=== PATIENT | male | born 1985 | race Caucasian/White ===

== ENCOUNTER 2021-09-17 14:26 | Emergency (ER) | payer OTHER, SELFPAY ==
--- NOTE | ~2021-09-17 | CT_ITS ---
EXAMINATION: CT ABDOMEN AND PELVIS WITHOUT CONTRAST CLINICAL INFORMATION: Left back pain and hematuria. Rule out kidney stones. COMPARISON: None TECHNIQUE: Multidetector volumetric imaging was performed from the superior aspect of the liver through the pubic symphysis. Sagittal and coronal reformatted images were obtained on the technologist's workstation. This CT examination was performed using dose optimization techniques as appropriate, variously including the following: *Automated exposure control *Adjustment of mA and/or kV according to patient size (this includes techniques or standardized protocols for targeted exams where dose is matched to indication/reason for exam; i.e. extremities or head) *Use of iterative reconstruction technique DLP: 1130 mGy-cm FINDINGS: LUNG BASES: There is motion artifact at the lung bases. There is question of airways disease with bronchial wall thickening and peribronchial nodules in the inferior segment of the lingula. LIVER, GALLBLADDER, AND BILIARY TREE: The liver is enlarged and low in attenuation suggestive of fatty infiltration. The liver and gallbladder are otherwise unremarkable. PANCREAS: Unremarkable. SPLEEN: The spleen is prominent measuring 14.5 cm in AP dimension. ADRENAL GLANDS: Unremarkable. KIDNEYS AND URETERS: The kidneys are normal in size, shape, and attenuation. No hydronephrosis, hydroureter, or calculi seen. There is a 1 cm low-attenuation lesion exophytic to the lower pole of the left kidney probably representing a cyst. No imaging follow-up is indicated. BLADDER: Unremarkable. GASTROINTESTINAL TRACT: There is diverticulosis of the colon. The small and large bowel are otherwise unremarkable. The appendix is unremarkable. ABDOMINAL WALL: No significant hernia is appreciated. LYMPH NODES: Normal. VASCULAR: Unremarkable. PELVIC VISCERA: Unremarkable. OSSEOUS STRUCTURES: There are degenerative changes of the spine. CT/CT abdomen pelvis wo IV con IMPRESSION: No renal stone or hydronephrosis seen. Small left renal cyst. Diverticulosis. Fatty infiltration of the liver. Prominent spleen. Question mild bronchial wall thickening or airways disease in the inferior segment of lingula. Fleischner guidelines were followed.
[2021-09-17 15:43] VITALS: BP 139/96; PULSE 68; RESP 20; TEMP 36.7; O2SAT 100; BMI 43.8
--- NOTE | 2021-09-17 15:46 | ED_ITS ---
HPI - General Adult General Chief complaint: Abdominal Pain Stated complaint: lower back pain/ blood in urine Time Seen by Provider: 09/17/21 15:44 Related Data Previous Rx's Medication Instructions Recorded cyclobenzaprine 10 mg tablet 10 mg PO Q8H #20 tab 09/17/21 tramadol 50 mg tablet 50 mg PO Q6H PRN #20 tab 09/17/21 Allergies Allergy/AdvReac Type Severity Reaction Status Date / Time No Known Allergies Allergy Verified 09/17/21 15:45 [facility] Past Medical History Medical History No known health problems Social History Social History Advance Directives: No Physical Exam ED Vital Signs: Vital Signs - 24 hr 09/17/21 15:43 Temperature 98.1 F Pulse Rate 68 Respiratory Rate 20 Blood Pressure 139/96 H Pulse Oximetry 100 BMI result Body Mass Index 43.8 Course Course Course Narrative: Rapid medical screening. Patient presents to the ED for left flank pain with hematuria since yesterday. Patient is well appearing. labs, UA and Abdomen/CT scan ordered for kidney stones. Medical Decision Making Lab Data Result diagrams: 09/17/21 16:31 09/17/21 16:31 Labs: Lab Results 09/17/21 09/17/21 09/17/21 Range/Units 16:31 16:31 16:31 WBC 7.6 (4.8-10.8) X10*3/uL RBC 4.40 L (4.60-5.80) X10*6/uL Hgb 14.6 (14.0-18.0) g/dl Hct 41.1 L (42.0-52.0) % MCV 93.4 (80.0-98.0) fL MCH 33.2 H (27.0-33.0) pg MCHC 35.5 (31.0-36.0) g/dl RDW 12.0 (11.0-16.0) % Plt Count 203 (160-400) X10*3/uL MPV 9.2 L (9.4-12.4) fL Immature Gran % (Auto) 0.5 H (0.0-0.4) % Neut % (Auto) 67.4 (45-73) % Lymph % (Auto) 20.9 (20-40) % [place] % (Auto) 7.0 (2-11) % Eos % (Auto) 3.8 (0-4) % Baso % (Auto) 0.4 (0-2) % Lymph # (Auto) 1.6 (1.2-4.9) X10*3/uL [place] # (Auto) 0.5 (0.1-1.2) X10*3/uL Eos # (Auto) 0.3 (0.0-0.4) X10*3/uL Baso # (Auto) 0.0 (0.0-0.2) X10*3/uL Abs Immat Gran (auto) 0.04 H (0.00-0.03) X10*3/uL Absolute Neuts (auto) 5.1 (2.0-8.3) x10*3/uL Absolute Nucleated RBC 0.000 (0.0-0.012) X10*3/uL Nucleated RBC % (auto) 0.0 (0.0-0.2) /100WBC Sodium 139 (135-145) mmol/L Potassium 4.0 (3.3-5.1) mmol/L Chloride 103 (96-108) mmol/L Carbon Dioxide 29 (22-29) mmol/L Anion Gap 11 L (12-20) BUN 9 (9-16) mg/dL Creatinine 0.80 (0.5-1.4) mg/dL Estim Creat Clear Calc 166.4 Estimated GFR > 60 Random Glucose 88 (60-115) mg/dL Calcium 9.2 (8.4-10.2) mg/dL Total Bilirubin 0.8 (0.0-1.0) mg/dL AST 71 H (5-37) U/L ALT 117 H (0-40) U/L Alkaline Phosphatase 83 (39-117) U/L Total Protein 7.7 (6.5-8.0) g/dL Albumin 4.5 (3.5-5.0) g/dL Lipase 39 (8-78) U/L Urine Color YELLOW Urine Appearance CLEAR Urine pH 6.0 (5.0-8.0) Ur Specific [place] 1.015 (1.005-1.025) Urine Protein NEG (NEG-TRACE) MG/DL Urine Glucose (UA) NEG (NEG) MG/DL Urine Ketones NEG (NEG) MG/DL Urine Blood NEG (NEG) Urine Nitrite NEG (NEG) Ur Leukocyte Esterase NEG (NEG) Discharge Plan Discharge Clinical Impression: Back pain Patient Disposition: Home, Self-Care Instructions: Back Pain (ED) Additional Instructions: Drink plenty of fluids At this time we will CT scan of the abdomen is negative for any kidney stone and kidney problems Take pain medication and muscle relaxants as advised Prescriptions: New cyclobenzaprine 10 mg tablet 10 mg PO Q8H Qty: 20 0RF tramadol 50 mg tablet 50 mg PO Q6H PRN (Reason: pain) Qty: 20 0RF Interventions: ED Discharge Assessment Last Done: 09/17/21 20:14 Discharge Date/Time: 09/17/21 20:15
[2021-09-17] MEDS: Acetaminophen 325 MG TABLET 650 MG PO (15:47)
[2021-09-17 16:36] LABS: MANUAL DIFF FLAG NO
[2021-09-17 16:37] LABS: Basophils Percent Auto 0.4 % (0-2); Eosinophils Absolute Auto 0.3 X10*3/uL (0.0-0.4); Eosinophils Percent Auto 3.8 % (0-4); Hematocrit 41.1 % (42.0-52.0); Hemoglobin 14.6 g/dl (14.0-18.0); Imm Gran Abs Auto 0.04 X10*3/uL (0.00-0.03); Imm Gran Pct Auto 0.5 % (0.0-0.4); Lymphocytes Absolute Auto 1.6 X10*3/uL (1.2-4.9); Lymphocytes Percent Auto 20.9 % (20-40); Mean Corpuscular HGB Conc 35.5 g/dl (31.0-36.0); Mean Corpuscular Hemoglobin 33.2 pg (27.0-33.0); Mean Corpuscular Volume 93.4 fL (80.0-98.0); Mean Platelet Volume 9.2 fL (9.4-12.4); Monocytes Absolute Auto 0.5 X10*3/uL (0.1-1.2); Neutrophils Absolute Auto 5.1 x10*3/uL (2.0-8.3); Neutrophils Percent Auto 67.4 % (45-73); Platelet Count 203 X10*3/uL (160-400); White Blood Count 7.6 X10*3/uL (4.8-10.8)
[2021-09-17 16:38] LABS: Appearance Urine CLEAR; Color Urine YELLOW; Glucose Urine UA NEG (NEG); Leukocyte Esterase Urine NEG (NEG); Nitrite Urine NEG (NEG); Specific Gravity - Urine 1.015 (1.005-1.025); Urine Blood NEG (NEG); Urine Ketones NEG (NEG); Urine Protein NEG (NEG-TRACE)
[2021-09-17 17:03] LABS: Alanine Aminotransferase 117 U/L (0-40); Albumin Level 4.5 g/dL (3.5-5.0); Alkaline Phosphatase 83 U/L (39-117); Anion Gap 11 (12-20); Aspartate Amino Transferase 71 U/L (5-37); Bilirubin Total 0.8 mg/dL (0.0-1.0); Blood Urea Nitrogen 9 mg/dL (9-16); Calcium 9.2 mg/dL (8.4-10.2); Carbon Dioxide 29 mmol/L (22-29); Chloride 103 mmol/L (96-108); Creatinine Clr Calc Pharmacy 166.4; Estimated Glomerular Filt Rate > 60; Glucose Random 88 mg/dL (60-115); Lipase 39 U/L (8-78); Sodium 139 mmol/L (135-145); Total Protein 7.7 g/dL (6.5-8.0)
--- NOTE | 2021-09-17 19:42 | ED_ITS ---
HPI - Back Pain/Injury General Chief Complaint: Abdominal Pain Stated Complaint: lower back pain/ blood in urine Time Seen by Provider: 09/17/21 15:44 Source: patient Mode of arrival: ambulatory Limitations: no limitations History of Present Illness HPI Narrative: Patient having low back pain for last several days without history of trauma for last 2 days notice blood and of the urination no urinary symptoms otherwise no fever no chills no abdominal pain Related Data Previous Rx's Medication Instructions Recorded cyclobenzaprine 10 mg tablet 10 mg PO Q8H #20 tab 09/17/21 tramadol 50 mg tablet 50 mg PO Q6H PRN #20 tab 09/17/21 Allergies Allergy/AdvReac Type Severity Reaction Status Date / Time No Known Allergies Allergy Verified 09/17/21 15:45 Review of Systems Review of Systems: Yes all other systems are reviewed and are negative [facility] Past Medical History Medical History No known health problems Social History Social History Advance Directives: No Physical Exam Vital Signs: Vital Signs: Last Vital Signs Temp 98.1 F 09/17/21 15:43 Pulse 68 09/17/21 15:43 Resp 20 09/17/21 15:43 BP 139/96 H 09/17/21 15:43 Pulse Ox 100 09/17/21 15:43 BMI result Body Mass Index 43.8 Appearance: Alert. Oriented X3. No acute distress. Eyes: PERRLA, No Nystagmus ENT: Pharynx normal. Oral Mucosa moist Neck: Normal inspection. Neck supple. CVS: Normal heart rate and rhythm. Pulses normal. Respiratory: No respiratory distress. Equal air entry bilateral, no wheezing/rales/rhonchi Abdomen: Soft and nontender. Bowel sounds are present, no mass palpable, no CVA tenderness Skin: Skin warm and dry. Normal skin color. Normal skin turgor. Extremities: No lower extremity edema. No calf tenderness back: Diffuse low back tenderness on the left side, no midline tenderness muscle spasm++ Neuro: Oriented X 3. No motor deficit. MDM - Back Pain/Injury MDM Narrative Medical decision making narrative: Patient's CT scan negative for anything acute urine is negative labs stable showed patient home likely patient has benign hematuria Lab Data Attestation: I reviewed the patient's lab results. Result diagrams: 09/17/21 16:31 09/17/21 16:31 Labs: Lab Results 09/17/21 09/17/21 09/17/21 Range/Units 16:31 16:31 16:31 WBC 7.6 (4.8-10.8) X10*3/uL RBC 4.40 L (4.60-5.80) X10*6/uL Hgb 14.6 (14.0-18.0) g/dl Hct 41.1 L (42.0-52.0) % MCV 93.4 (80.0-98.0) fL MCH 33.2 H (27.0-33.0) pg MCHC 35.5 (31.0-36.0) g/dl RDW 12.0 (11.0-16.0) % Plt Count 203 (160-400) X10*3/uL MPV 9.2 L (9.4-12.4) fL Immature Gran % (Auto) 0.5 H (0.0-0.4) % Neut % (Auto) 67.4 (45-73) % Lymph % (Auto) 20.9 (20-40) % [place] % (Auto) 7.0 (2-11) % Eos % (Auto) 3.8 (0-4) % Baso % (Auto) 0.4 (0-2) % Lymph # (Auto) 1.6 (1.2-4.9) X10*3/uL [place] # (Auto) 0.5 (0.1-1.2) X10*3/uL Eos # (Auto) 0.3 (0.0-0.4) X10*3/uL Baso # (Auto) 0.0 (0.0-0.2) X10*3/uL Abs Immat Gran (auto) 0.04 H (0.00-0.03) X10*3/uL Absolute Neuts (auto) 5.1 (2.0-8.3) x10*3/uL Absolute Nucleated RBC 0.000 (0.0-0.012) X10*3/uL Nucleated RBC % (auto) 0.0 (0.0-0.2) /100WBC Sodium 139 (135-145) mmol/L Potassium 4.0 (3.3-5.1) mmol/L Chloride 103 (96-108) mmol/L Carbon Dioxide 29 (22-29) mmol/L Anion Gap 11 L (12-20) BUN 9 (9-16) mg/dL Creatinine 0.80 (0.5-1.4) mg/dL Estim Creat Clear Calc 166.4 Estimated GFR > 60 Random Glucose 88 (60-115) mg/dL Calcium 9.2 (8.4-10.2) mg/dL Total Bilirubin 0.8 (0.0-1.0) mg/dL AST 71 H (5-37) U/L ALT 117 H (0-40) U/L Alkaline Phosphatase 83 (39-117) U/L Total Protein 7.7 (6.5-8.0) g/dL Albumin 4.5 (3.5-5.0) g/dL Lipase 39 (8-78) U/L Urine Color YELLOW Urine Appearance CLEAR Urine pH 6.0 (5.0-8.0) Ur Specific [place] 1.015 (1.005-1.025) Urine Protein NEG (NEG-TRACE) MG/DL Urine Glucose (UA) NEG (NEG) MG/DL Urine Ketones NEG (NEG) MG/DL Urine Blood NEG (NEG) Urine Nitrite NEG (NEG) Ur Leukocyte Esterase NEG (NEG) Discharge Plan Discharge Clinical Impression: Back pain Patient Disposition: Home, Self-Care Instructions: Back Pain (ED) Additional Instructions: Drink plenty of fluids At this time we will CT scan of the abdomen is negative for any kidney stone and kidney problems Take pain medication and muscle relaxants as advised Prescriptions: New cyclobenzaprine 10 mg tablet 10 mg PO Q8H Qty: 20 0RF tramadol 50 mg tablet 50 mg PO Q6H PRN (Reason: pain) Qty: 20 0RF
== END 2021-09-17 20:15 | disposition home or self-care (01) ==
LOC: HO.ED 19:48
PROVIDERS: Physician Assistant; Emergency Provider Internal Medicine
DX: M54.50 Low back pain, unspecified (principal); R31.9 Hematuria, unspecified; R10.9 Unspecified abdominal pain; Z79.899 Other long term (current) drug therapy
CPT/HCPCS: 36415; 74176; 80053; 81003; 83690; 85025; 99283; 99284